=== PATIENT | female | born 1950 | race Caucasian/White ===

== ENCOUNTER → 2023-05-22 13:42 | Outpatient (REF) | payer MEDICARE, OTHER, SELFPAY | LOC: WDC 13:42 | PROVIDERS: ATTENDING PHYSICIAN Family Medicine | DX: Z12.31 Encounter for screening mammogram for malignant neoplasm of breast (principal) | CPT/HCPCS: 77063; 77067 ==

== ENCOUNTER → 2024-06-13 14:06 | Outpatient (REF) | payer MEDICARE, OTHER, SELFPAY | LOC: WDC 14:06 | PROVIDERS: ATTENDING PHYSICIAN Family Medicine; FAMILY PHYSICIAN Family Medicine | DX: Z12.31 Encounter for screening mammogram for malignant neoplasm of breast (principal) | CPT/HCPCS: 77063; 77067 ==

== ENCOUNTER → 2024-10-07 08:55 | Outpatient (REF) | payer MEDICARE, OTHER, SELFPAY | LOC: RAD 08:55 | PROVIDERS: ATTENDING PHYSICIAN Family Medicine | DX: M81.0 Age-related osteoporosis without current pathological fracture (principal) | CPT/HCPCS: 77080 ==

== ENCOUNTER → 2024-12-13 13:55 | Outpatient (REF) | payer MEDICARE, OTHER, SELFPAY | LOC: HWRAD 13:55 | PROVIDERS: ATTENDING PHYSICIAN Physician Assistant Medical; FAMILY PHYSICIAN Family Medicine | DX: S09.90XA Unspecified injury of head, initial encounter (principal) | CPT/HCPCS: 70450 ==